=== PATIENT | female | born 1955 ===

== ENCOUNTER 2017-08-22 06:01 | Day surgery (SDC) | payer OTHER ==
[2017-08-22 07:07] VITALS: BMI 22.1
--- NOTE | 2017-08-22 08:16 | CP.SDSHP ---
Same Day Surgery H & P - History Proposed Procedure: egd. colonoscopy Pre-Op Diagnosis: heartburn. rectal bleeding/hematochezia - Previous Medical/Surgical History Cardiac: Hypertension Misc: Other (gerd, internal hemorrhoids) Previous Surgical History: TYSON/BSO - Allergies Allergies: Allergies No Known Allergies Allergy (Verified 08/22/17 07:06) - Physical Exam Mental Status: Alert & Oriented x3 Neuro: WNL Heart: WNL Lungs: WNL GI: WNL - {Optional Preform as Required} Abdomen: Other (midline TYSON scar) - Impression Impression: heartburn. rectal bleeding/hematochezia Pt. Evaluated Today:Candidate for Anesthesia & Procedure: Yes - Date & Time Date: 08/22/17 Time: 08:16 Short Stay Discharge - Short Stay Discharge Admitting Diagnosis/Reason for Visit: MELENA / CONSTIPATION / EPIGASTRIC PAIN Disposition: HOME/ ROUTINE
[2017-08-22] MEDS ORDERED: Pantoprazole 40 mg EC Tab PO STA (08:17)
[2017-08-22] MEDS ORDERED: Propofol 10 mg/ml Inj (20 ML) ONE (08:18)
[2017-08-22 08:30] VITALS: O2SAT 100
[2017-08-22 09:49] VITALS: BP 127/76; PULSE 60; RESP 16; TEMP 98.2
== END 2017-08-22 09:45 | disposition home or self-care (01) ==
LOC: C.ENDO 06:01
PROVIDERS: ATTEND Internal Medicine Gastroenterology
DX: K29.50 Unspecified chronic gastritis without bleeding (principal); K21.0 Gastro-esophageal reflux disease with esophagitis; K44.9 Diaphragmatic hernia without obstruction or gangrene; K64.1 Second degree hemorrhoids; K92.1 Melena; I10 Essential (primary) hypertension
CPT/HCPCS: 43239; 45378; 88305; J2001; J2704; J3010

== ENCOUNTER 2019-01-13 08:15 | Outpatient (CLI) | payer OTHER | END 2019-01-13 08:16 | disposition home or self-care (01) | LOC: C.CTH 08:15 | DX: R10.84 Generalized abdominal pain (principal) ==